=== PATIENT | male | born 1955 | race Two or more races ===

== ENCOUNTER 2023-10-28 14:55 | Outpatient (CLI) | payer OTHER | END 2023-10-28 15:01 | disposition home or self-care (01) | LOC: SONOGRAMA 14:55 → RAD 14:55 → SONOGRAMA 15:01 | PROVIDERS: ATTEND Pathology Anatomic Pathology & Clinical Pathology | DX: D11.0 Benign neoplasm of parotid gland (principal); D37.030 Neoplasm of uncertain behavior of the parotid salivary glands; R22.1 Localized swelling, mass and lump, neck ==